=== PATIENT | female | born 1950 | race Caucasian/White ===

== ENCOUNTER → 2017-02-22 | Outpatient (CLI) | payer MEDICARE ==
--- NOTE | 2017-03-08 16:03 | SS ---
ADMIT: 02/22/2017 RM/LOC: [facility] MR#: [id number] [place], [place] [id number] JOLANTA FERRELL [address] [place] [address] Sleep Study SEX: F AGE: 66 : 1950 STUDY DATE: 02/22/2017 CLINICAL HISTORY: A 66-year-old female, body mass index of 40.6, 60 inches tall, 280 pounds. Symptoms of snoring, daytime fatigue, undergoing home sleep study for evaluation of obstructive sleep apnea. HOME SLEEP STUDY FINDINGS: RECORDING INFORMATION: Recording date is 02/22/2017. Bedtime starts 9 p.m. Bedtime ends 4:13 a.m. Time in bed 7 hours 10 minutes. NOX-T3 home sleep study device was used with good signal quality. BREATHING: Chxe-se-hkjbyore obstructive sleep apnea with apnea-hypopnea of 11.9. OXYGEN SATURATION: Mean sleeping oxygen saturation is 91%. Lowest oxygen saturation 83%. CARDIAC: Average pulse 72 beats per minute. BODY POSITION: The patient slept in the supine lateral position during the study. IMPRESSION: Eugs-dg-dabmgaac obstructive sleep apnea with apnea-hypopnea 11.9. Recommend in-lab CPAP titration. Alternatively, auto CPAP from 4 to 20 cm can be used. Recommend losing weight. Recommend avoiding sedative and alcohol. Recommend refrain from driving if excessively sleepy. Recommend avoiding sleeping in supine position. Clinical correlation needed. CPAP therapy is recommended. Ruslan Sewell MD/ jeff JOB #: [id number] CC: Lukas Mckinney MD, Attending Physician Lukas Mckinney MD, Family Physician Lukas Mckinney MD
== END | disposition home or self-care (01) ==
LOC: CARD 02-20 09:00
DX: G47.33 Obstructive sleep apnea (adult) (pediatric) (principal)

== ENCOUNTER → 2017-03-21 | Outpatient (CLI) | payer MEDICARE | END | disposition home or self-care (01) | LOC: PTH.S 08:45 → RAD.S 09:15 | DX: M54.9 Dorsalgia, unspecified (principal); M54.30 Sciatica, unspecified side; M48.06 Spinal stenosis, lumbar region ==